=== PATIENT | female | born 1980 | race Caucasian/White ===

== ENCOUNTER 2024-10-17 05:59 | Inpatient (IN) | payer BC ==
[2024-10-17 06:19] VITALS: BMI 26.5
[2024-10-17] MEDS ORDERED: fentaNYL 50 mcg/mL 1 mL Vial SLOW IVP PRN (07:20)
[2024-10-17] MEDS ORDERED: Diphenoxylate HCl/Atropine Tablet PO PRN (07:20)
[2024-10-17] MEDS ORDERED: HYDROcodone/Acetaminophen 5/325 mg Tablet PO PRN ×2 (07:20→12:44)
[2024-10-17] MEDS ORDERED: hydrALAZINE 20 MG/ML VIAL SLOW IVP PRN ×2 (07:20→12:44)
[2024-10-17] MEDS ORDERED: Acetaminophen 500 MG TAB PO PRN (07:20)
[2024-10-17] MEDS ORDERED: Misoprostol 200 MCG TAB PR PRN (07:20)
[2024-10-17] MEDS ORDERED: Methylergonovine 0.2 MG/ML VIAL IM PRN (07:20)
[2024-10-17] MEDS ORDERED: Ondansetron PF 4 MG/2 ML Vial IVP PRN ×2 (07:20→12:44)
[2024-10-17] MEDS ORDERED: Carboprost 250 MCG/ML AMP IM PRN (07:20)
[2024-10-17] MEDS ORDERED: Promethazine HCl 25 MG/ML VIAL IM PRN ×2 (07:20→12:44)
[2024-10-17] MEDS ORDERED: Oxytocin 30 units/NS 500 ML 500 ML IV SCH (07:30)
[2024-10-17 07:44] LABS: Hematocrit 39.8 % (34.9-44.5); Hemoglobin 13.4 g/dL (12.0-15.5); Mean Corpuscular HGB CONC 33.7 g/dL (32.0-36.0); Mean Corpuscular Hemoglobin 30.2 pg (27.0-33.0); Mean Corpuscular Volume 89.6 fL (81.6-98.3); Mean Platelet Volume 11.3 fL (7.4-10.4); Platelet Count 291 10x3/uL (150-450); RBC Distribution Width 13.2 % (11.5-14.5); Red Blood Cell (RBC) Count 4.44 10x6/uL (3.90-5.03); White Blood Cell (WBC) Count 14.64 10x3/uL (3.5-10.5)
[2024-10-17 08:12] LABS: Hep B Surf Ag - L&D Non-Reactive S/CO (NonReactive)
[2024-10-17 08:14] LABS: Syphilis Antibody Nonreactive (Nonreactive); Syphilis Antibody Index 0.06 S/CO (<1.00 Non-Reactive)
[2024-10-17] MEDS: Oxytocin 30 units/NS 500 ML 500 ML IV SCH (10:23)
[2024-10-17] MEDS: Lactated Ringer's 1,000 ML IV SCH (10:23)
[2024-10-17] MEDS: Lidocaine 1% (PF) 30 ML VIAL SC PRN (10:56)
[2024-10-17] MEDS: Ibuprofen 800 MG TAB PO PRN (11:04)
[2024-10-17] MEDS ORDERED: Preparation H Ointment 28 GM TUBE PR PRN (12:44)
[2024-10-17] MEDS ORDERED: Bisacodyl 10 MG SUPP PR PRN (12:44)
[2024-10-17] MEDS ORDERED: Benzocaine-Menthol 82.5 ML CAN TOP PRN (12:44)
[2024-10-17] MEDS ORDERED: Milk Of Magnesia 30 ML UDCUP PO PRN (12:44)
[2024-10-17] MEDS ORDERED: diphenhydrAMINE 25 MG CAP PO PRN (12:44)
[2024-10-17] MEDS: Ferrous Sulfate 325 MG TAB PO SCH (17:26)
[2024-10-17] MEDS: Boostrix 0.5 ML (Tdap) VIAL (>/=7 yrs of age) IM ONE (17:27)
[2024-10-17] MEDS: Ibuprofen 800 MG TAB PO SCH (18:09)
[2024-10-17] MEDS: Docusate 100 MG CAP PO SCH (21:18)
[2024-10-18] MEDS: Ibuprofen 800 MG TAB PO SCH (02:00)
[2024-10-18 15:52] VITALS: BP 110/59; TEMP 98.3
== END 2024-10-18 16:40 | disposition home or self-care (01) | DRG 807 ==
LOC: CSHLD 05:59 → CSHPP 13:30
PROVIDERS: ADMIT Student in an Organized Health Care Education/Training Program; ATTEND Student in an Organized Health Care Education/Training Program
PROC: 10E0XZZ Delivery of Products of Conception, External Approach (ICD-10-PCS; principal; 2024-10-17)
PROC: 0HQ9XZZ Repair Perineum Skin, External Approach (ICD-10-PCS; 2024-10-17)
PROC: 10907ZC Drainage of Amniotic Fluid, Therapeutic from Products of Conception, Via Natural or Artificial Opening (ICD-10-PCS; 2024-10-17)
PROC: 3E033VJ Introduction of Other Hormone into Peripheral Vein, Percutaneous Approach (ICD-10-PCS; 2024-10-17)
DX: O70.0 First degree perineal laceration during delivery (principal); Z37.0 Single live birth; Z88.8 Allergy status to other drugs, medicaments and biological substances; Z3A.40 40 weeks gestation of pregnancy
CPT/HCPCS: 85027; 86780; 86850; 86900; 86901; 87340; J2590; J7120